=== PATIENT | male | born 1950 | race Two or more races ===

== ENCOUNTER 2018-06-25 14:21 | Emergency (ER) | payer MEDICARE, OTHER ==
[~2018-06-25] VITALS: Ht 160 cm; Wt 72.0 kg
[2018-06-25 14:30] VITALS: BP 153/95
[2018-06-25] MEDS ORDERED: KETOROLAC 30 MG/1 ML IM ONE (15:30)
[2018-06-25] MEDS ORDERED: METHOCARBAMOL 750 MG TABLET PO ONE (15:30)
[2018-06-25] MEDS ORDERED: METHOCARBAMOL 750 MG TABLET ONE (15:32)
[2018-06-25] MEDS ORDERED: KETOROLAC 30 MG/1 ML ONE (15:32)
--- NOTE | 2018-06-25 15:47 | NUR ---
Discharge instructions discussed with patient including when to return to emergency department, patient verbalizes understanding. Prescriptions provided to patient with instruction for use.
--- NOTE | 2018-06-25 15:55 | NUR ---
Patient declines waiting longer for medication hold, ambulates with stiff gait in no acute distress to discharge desk.
== END 2018-06-25 15:56 | disposition home or self-care (01) ==
LOC: ED 15:47
DX: S32.039A Unspecified fracture of third lumbar vertebra, initial encounter for closed fracture (principal); X58.XXXA Exposure to other specified factors, initial encounter; Y93.89 Activity, other specified; Y92.89 Other specified places as the place of occurrence of the external cause; Y99.8 Other external cause status
CPT/HCPCS: 72110; 96372; 99283; J1885; 99284

== ENCOUNTER 2018-07-30 17:27 | Emergency (ER) | payer OTHER ==
[~2018-07-30] VITALS: Ht 152.4 cm; Wt 72.3 kg
[2018-07-30] MEDS ORDERED: KETOROLAC 30 MG/1 ML IM ONE (18:00)
[2018-07-30] MEDS ORDERED: KETOROLAC 30 MG/1 ML ONE (18:11)
[2018-07-30 19:42] VITALS: BP 120/77
== END 2018-07-30 18:00 | disposition home or self-care (01) ==
LOC: ED 17:59
DX: S32.039A Unspecified fracture of third lumbar vertebra, initial encounter for closed fracture (principal); S39.012A Strain of muscle, fascia and tendon of lower back, initial encounter; M51.36 Other intervertebral disc degeneration, lumbar region; X50.9XXA Other and unspecified overexertion or strenuous movements or postures, initial encounter; Y93.89 Activity, other specified; Y92.89 Other specified places as the place of occurrence of the external cause; Y99.8 Other external cause status; Y93.9 Activity, unspecified
CPT/HCPCS: 72110; 96372; 99283; J1885

== ENCOUNTER 2018-08-25 08:39 | Outpatient (CLI) | payer MEDICARE, OTHER ==
[2018-08-25] MEDS ORDERED: HYDR-3240 PO (14:11)
== END 2018-08-25 23:59 | disposition home or self-care (01) ==
LOC: CFH 08:39
PROVIDERS: ATTEND Family Medicine
DX: M46.26 Osteomyelitis of vertebra, lumbar region (principal); M46.46 Discitis, unspecified, lumbar region; M84.48XA Pathological fracture, other site, initial encounter for fracture; G06.2 Extradural and subdural abscess, unspecified; M47.817 Spondylosis without myelopathy or radiculopathy, lumbosacral region; M48.07 Spinal stenosis, lumbosacral region
CPT/HCPCS: 72148

== ENCOUNTER 2018-08-25 11:21 | Inpatient (IN) | payer OTHER ==
[~2018-08-25] VITALS: Ht 160 cm; Wt 67.0 kg
[2018-08-25] MEDS ORDERED: ONDANSETRON 2MG/ML, 2ML ONE (11:56)
[2018-08-25] MEDS ORDERED: MORPHINE SULFATE 4 MG/ML, 1ML ONE (11:57)
[2018-08-25] MEDS ORDERED: SODIUM CHLORIDE FLUSH 10ML SYR IVF ONE (12:00)
[2018-08-25] MEDS ORDERED: ONDANSETRON 2MG/ML, 2ML IVPush ONE (12:00)
[2018-08-25] MEDS ORDERED: MORPHINE SULFATE 4 MG/ML, 1ML IVPush PRN (12:00)
[2018-08-25 12:19] LABS: BASOPHILS # (AUTO) 0.02 x10^3/uL (0-0.1); BASOPHILS % (AUTO) 0 % (0-1); EOSINOPHILS % (AUTO) 0 % (1-7); HCT (SEDRATE) 33.9 % (39.2-51.8); LYMPHOCYTES # (AUTO) 0.31 x10^3/uL (1-3.4); LYMPHOCYTES % (AUTO) 3 % (22-44); MD NO; MEAN CORPUSCULAR HEMOGLOBIN 27.9 pg (27.5-34.5); MEAN CORPUSCULAR HGB CONC 32.8 g/dL (33.2-36.2); MEAN PLATELET VOLUME 7.7 fL (7.4-10.4); MONOCYTES # (AUTO) 0.32 x10^3/uL (0.2-0.8); MONOCYTES % (AUTO) 3 % (2-9); NEUTROPHILS # (AUTO) 8.67 x10^3/uL (1.8-6.8); NEUTROPHILS % (AUTO) 93 % (42-75); PLATELET COUNT 304 x10^3/uL (130-400); RED CELL DISTRIBUTION WIDTH 17.4 % (9.4-14.8)
--- NOTE | 2018-08-25 12:24 | NUR ---
PT REPORTS THAT HE WAS GETTING AN MRI OF HIS BACK AND "THEY SENT ME HERE BECAUSE I HAVE AN INFECTION IN MY SPINE. I ASKED IF I COULD GO TO THE ED LATER AND THEY SAID NO, NO, NO YOU HAVE TO GO RIGHT AWAY. IT'S URGENT". PT REPORTS THAT HIS PAIN GETS UP TO A 9 SOMETIMES, BUT WHEN HE DOESN'T MOVE IT GETS MUCH BETTER.
[2018-08-25 12:29] LABS: INTERNATIONAL NORMALIZED RATIO 1.02 (0.93-1.1); PROTHROMBIN TIME 10.7 Seconds (9.6-11.5)
--- NOTE | 2018-08-25 12:29 | NUR ---
PT REPORTS HE TAKES MEDICATION BUT CANNOT REMEMBER THE NAMES.
[2018-08-25] MEDS ORDERED: SODIUM CHLORIDE FLUSH 10ML SYR IVF PRN (12:30)
[2018-08-25 12:31] LABS: ALANINE AMINOTRANSFERASE 62 U/L (12-78); ALBUMIN 2.9 g/dL (3.4-5.0); ANION GAP 9 mmol/L (5-15); CALCIUM 9.6 mg/dL (8.5-10.1); CHLORIDE 102 mmol/L (98-107); CREATININE 1.45 mg/dL (0.7-1.3)
--- NOTE | 2018-08-25 12:36 | NUR ---
AT BEDSIDE ASSESSING PT. WE DISCUSSED PT MEDS AND I TOLD HER I WOULD WORK ON GETTING THE INFO BECAUSE PT CAN'T REMEMBER WHAT HE TAKES.
[2018-08-25 12:37] LABS: ALKALINE PHOSPHATASE 216 U/L (45-117); TOTAL PROTEIN 7.9 g/dL (6.4-8.2)
--- NOTE | 2018-08-25 12:55 | NUR ---
ATTEMPTED TO CALL REPORT. SPOKE WITH CONRAD, ASKED FOR RENA. CONRAD SAID THAT [facility] WILL CALL ME BACK IN A FEW MINUTES.
[2018-08-25] MEDS ORDERED: ONDANSETRON 2MG/ML, 2ML IVPush PRN (13:00)
[2018-08-25] MEDS ORDERED: ONDANSETRON ODT 4 MG PO PRN (13:00)
[2018-08-25] MEDS ORDERED: LABETALOL 5MG/ML, 20ML IVPush PRN (13:00)
--- NOTE | 2018-08-25 13:00 | NUR ---
SPOKE WITH ASHLEY REGARDING PT PROCEDURE. SHE SAID SHE NEEDED ADDITIONAL INFORMATION BEFORE TAKING THE PT AND SHE WOULD COME BACK FOR PT.
[2018-08-25] MEDS ORDERED: LIDOCAINE-MPF 1%, 5ML ONE (13:05)
--- NOTE | 2018-08-25 13:07 | NUR ---
CALLED [facility] ON , SPOKE WITH BARBARA, ASKED FOR A LIST OF PT MEDS. ON HOLD.
[2018-08-25 13:14] LABS: FREE T4 (FREE THYROXINE) 1.62 ng/dL (0.76-1.46)
--- NOTE | 2018-08-25 13:14 | NUR ---
[facility] AT [facility] REPORTS THAT THE ONLY THING THE PT IS CURRENTLY TAKING IS NORCO.
--- NOTE | 2018-08-25 13:21 | NUR ---
POC DISCUSSED WITH PT AND HE VERBALIZED UNDERSTANDING.
--- NOTE | 2018-08-25 13:24 | NUR ---
SPOKE WITH CALEB IN SECURITY. PT'S [employer] [facility] LICENSE # [id number] IS PARKED IN THE ED PARKING LOT IN A HANDICAP SPOT. PT IS TO BE ADMITTED WITH AN EXPECTED 3 DAY STAY .
--- NOTE | 2018-08-25 13:26 | NUR ---
LATE ENTRY FOR 1310, [employer] # [id number] USED TO EXPLAIN POC, CT PROCEDURE FOR LUMBAR DISC SPACE BIOPSY, PLAN FOR ADMIT AND ANTIBIOTIC TREATMENT. PT VERBALIZED UNDERSTANDING.
--- NOTE | 2018-08-25 13:35 | NUR ---
REPORT GIVEN TO RENA. POC DISCUSSED WITH PT. PT IS AGREEABLE TO PLAN.
--- NOTE | 2018-08-25 13:41 | NUR ---
[facility] IS HERE TO TAKE PT. PT READY TO GO.
[2018-08-25] MEDS ORDERED: FENTANYL PF 100 MCG/2ML ONE (13:52)
[2018-08-25] MEDS ORDERED: MIDAZOLAM 1 MG/ML, 5ML ONE (13:53)
[2018-08-25] MEDS ORDERED: NALOXONE 1 MG/ML, 2ML ONE (13:53)
[2018-08-25] MEDS ORDERED: FLUMAZENIL 0.1 MG/1 ML, 5ML ONE (13:53)
[2018-08-25] MEDS ORDERED: HYDR-3240 PO (14:11)
[2018-08-25 15:03] VITALS: BP 116/80
[2018-08-25] MEDS ORDERED: VANCOMYCIN PER PHARMACY MC PRN (16:30)
[2018-08-25] MEDS ORDERED: PHARMACOKINETIC MONITORING MC PRN (16:30)
[2018-08-25] MEDS ORDERED: VANCOMYCIN 1,300 MG in SODIUM CHLORIDE 0.9% 250 ML IV SCH (17:00)
[2018-08-25] MEDS: CEFTRIAXONE PMX 2GM/50ML 50 ML IV SCH (17:35)
[2018-08-25 18:55] VITALS: BP 133/73
[2018-08-25] MEDS: MORPHINE SULFATE 4 MG/ML, 1ML IVPush PRN (22:53)
[2018-08-26 00:11] VITALS: BP 149/83
[2018-08-26 02:55] LABS: CULTURE INDICATED? YES; MICROSCOPIC AUTO
[2018-08-26] MEDS: CEFTRIAXONE PMX 2GM/50ML 50 ML IV SCH (05:01)
[2018-08-26 06:22] LABS: ALBUMIN 2.4 g/dL (3.4-5.0); ANION GAP 7 mmol/L (5-15); CHLORIDE 104 mmol/L (98-107)
[2018-08-26 06:26] LABS: BASOPHILS # (AUTO) 0.04 x10^3/uL (0-0.1); BASOPHILS % (AUTO) 1 % (0-1); EOSINOPHILS # (AUTO) 0.01 x10^3/uL (0-0.4); EOSINOPHILS % (AUTO) 0 % (1-7); LYMPHOCYTES # (AUTO) 0.82 x10^3/uL (1-3.4); LYMPHOCYTES % (AUTO) 13 % (22-44); MD NO; MEAN CORPUSCULAR HEMOGLOBIN 27.6 pg (27.5-34.5); MEAN CORPUSCULAR HGB CONC 32.7 g/dL (33.2-36.2); MEAN CORPUSCULAR VOLUME 84.4 fL (81-97); MEAN PLATELET VOLUME 7.9 fL (7.4-10.4); MONOCYTES % (AUTO) 11 % (2-9); NEUTROPHILS # (AUTO) 4.62 x10^3/uL (1.8-6.8); NEUTROPHILS % (AUTO) 75 % (42-75); PLATELET COUNT 240 x10^3/uL (130-400); RED BLOOD COUNT 3.35 x10^6/uL (4.38-5.82); RED CELL DISTRIBUTION WIDTH 17.6 % (9.4-14.8)
[2018-08-26 06:36] LABS: ALANINE AMINOTRANSFERASE 50 U/L (12-78); ALKALINE PHOSPHATASE 189 U/L (45-117); BILIRUBIN,TOTAL 0.7 mg/dL (0.2-1.0); CREATININE 1.09 mg/dL (0.7-1.3); THYROID STIMULATING HORMONE 0.644 mIU/L (0.358-3.740); TOTAL PROTEIN 6.8 g/dL (6.4-8.2)
[2018-08-26 06:52] VITALS: BP 126/74
[2018-08-26] MEDS: PANTOPRAZOLE 40 MG IV IVPush SCH (08:27)
[2018-08-26] MEDS: MORPHINE SULFATE 4 MG/ML, 1ML IVPush PRN (09:55)
[2018-08-26 10:01] LABS: AMPHETAMINE SCREEN, URINE Negative (Negative); BARBITURATE SCREEN, URINE Negative (Negative); BENZODIAZEPINE SCREEN, URINE Positive (Negative); CANNABINOID SCREEN, URINE Negative (Negative); COCAINE SCREEN, URINE Negative (Negative); METHADONE SCREEN, URINE Negative (Negative); OPIATE SCREEN, URINE Positive (Negative)
[2018-08-26] MEDS: MEROPENEM 1 GM in SODIUM CHLORIDE 0.9% 100 ML IV SCH ×2 (12:30→20:39)
[2018-08-26 12:40] VITALS: BP 128/77
[2018-08-26 19:14] VITALS: BP 135/75
[2018-08-27 01:56] VITALS: BP 150/77
[2018-08-27] MEDS: MEROPENEM 1 GM in SODIUM CHLORIDE 0.9% 100 ML IV SCH ×3 (04:21→20:13)
[2018-08-27 05:51] LABS: BASOPHILS # (AUTO) 0.04 x10^3/uL (0-0.1); BASOPHILS % (AUTO) 1 % (0-1); EOSINOPHILS # (AUTO) 0.03 x10^3/uL (0-0.4); EOSINOPHILS % (AUTO) 1 % (1-7); LYMPHOCYTES # (AUTO) 0.85 x10^3/uL (1-3.4); LYMPHOCYTES % (AUTO) 17 % (22-44); MD NO; MEAN CORPUSCULAR HEMOGLOBIN 27.1 pg (27.5-34.5); MEAN CORPUSCULAR VOLUME 82.3 fL (81-97); MEAN PLATELET VOLUME 7.2 fL (7.4-10.4); MONOCYTES # (AUTO) 0.65 x10^3/uL (0.2-0.8); MONOCYTES % (AUTO) 13 % (2-9); NEUTROPHILS # (AUTO) 3.46 x10^3/uL (1.8-6.8); NEUTROPHILS % (AUTO) 69 % (42-75); PLATELET COUNT 253 x10^3/uL (130-400); RED BLOOD COUNT 3.28 x10^6/uL (4.38-5.82); RED CELL DISTRIBUTION WIDTH 17.4 % (9.4-14.8)
[2018-08-27 06:07] LABS: ALBUMIN 2.2 g/dL (3.4-5.0); ANION GAP 6 mmol/L (5-15); CALCIUM 9.1 mg/dL (8.5-10.1); CHLORIDE 105 mmol/L (98-107)
[2018-08-27 06:12] LABS: ALANINE AMINOTRANSFERASE 60 U/L (12-78); ALKALINE PHOSPHATASE 186 U/L (45-117); BILIRUBIN,TOTAL 0.6 mg/dL (0.2-1.0); CREATININE 1.06 mg/dL (0.7-1.3); TOTAL PROTEIN 6.8 g/dL (6.4-8.2)
[2018-08-27 07:26] VITALS: BP 153/83
[2018-08-27] MEDS: PANTOPRAZOLE 40 MG IV IVPush SCH (08:22)
[2018-08-27] MEDS ORDERED: HYDROcodone/APAP 5/325 TABLET ONE (12:52)
[2018-08-27] MEDS: HYDROcodone/APAP 5/325 TABLET PO PRN ×2 (12:55→20:13)
[2018-08-27 14:45] VITALS: BP 137/80
[2018-08-27 18:46] VITALS: BP 120/70
[2018-08-28 00:16] VITALS: BP 143/91
[2018-08-28] MEDS: MEROPENEM 1 GM in SODIUM CHLORIDE 0.9% 100 ML IV SCH (04:28)
[2018-08-28 05:54] LABS: ALBUMIN 2.2 g/dL (3.4-5.0); ANION GAP 5 mmol/L (5-15); CALCIUM 9.1 mg/dL (8.5-10.1); CHLORIDE 106 mmol/L (98-107)
[2018-08-28 05:58] LABS: ALANINE AMINOTRANSFERASE 84 U/L (12-78); ALKALINE PHOSPHATASE 226 U/L (45-117); BILIRUBIN,TOTAL 0.6 mg/dL (0.2-1.0); CREATININE 0.96 mg/dL (0.7-1.3); TOTAL PROTEIN 6.7 g/dL (6.4-8.2)
[2018-08-28 06:00] LABS: BASOPHILS # (AUTO) 0.05 x10^3/uL (0-0.1); BASOPHILS % (AUTO) 1 % (0-1); EOSINOPHILS # (AUTO) 0.06 x10^3/uL (0-0.4); EOSINOPHILS % (AUTO) 1 % (1-7); LYMPHOCYTES # (AUTO) 0.93 x10^3/uL (1-3.4); LYMPHOCYTES % (AUTO) 14 % (22-44); MD NO; MEAN CORPUSCULAR HGB CONC 32.3 g/dL (33.2-36.2); MEAN CORPUSCULAR VOLUME 83.6 fL (81-97); MEAN PLATELET VOLUME 7.5 fL (7.4-10.4); MONOCYTES % (AUTO) 9 % (2-9); NEUTROPHILS # (AUTO) 5.14 x10^3/uL (1.8-6.8); NEUTROPHILS % (AUTO) 76 % (42-75); PLATELET COUNT 240 x10^3/uL (130-400); RED BLOOD COUNT 3.43 x10^6/uL (4.38-5.82)
[2018-08-28 08:13] VITALS: BP 164/95
[2018-08-28] MEDS: PANTOPRAZOLE 40 MG IV IVPush SCH (09:30)
[2018-08-28] MEDS: HYDROcodone/APAP 5/325 TABLET PO PRN ×2 (09:30→19:49)
[2018-08-28] MEDS ORDERED: POLYETHYLENE GLYCOL 17 GM PACKET PO PRN (09:30)
[2018-08-28] MEDS ORDERED: BISACODYL 10 MG SUPP PR PRN (09:30)
[2018-08-28] MEDS ORDERED: MAGNESIUM HYDROXIDE 8%, 30ML UDC PO PRN (09:30)
[2018-08-28] MEDS: DOCUSATE 100 MG CAPSULE PO SCH ×2 (09:46→19:49)
[2018-08-28] MEDS: ERTAPENEM 1 GM in SODIUM CHLORIDE 0.9% 50 ML IV SCH (12:29)
[2018-08-28 13:55] VITALS: BP 133/72
[2018-08-28 18:51] VITALS: BP 146/81
[2018-08-29 00:45] VITALS: BP 143/76
[2018-08-29] MEDS: HYDROcodone/APAP 5/325 TABLET PO PRN ×2 (08:24→21:49)
[2018-08-29] MEDS: PANTOPROZOLE 40MG TABLET PO SCH (08:24)
[2018-08-29] MEDS: DOCUSATE 100 MG CAPSULE PO SCH ×2 (08:24→21:42)
[2018-08-29 09:49] VITALS: BP 150/83
[2018-08-29] MEDS: ERTAPENEM 1 GM in SODIUM CHLORIDE 0.9% 50 ML IV SCH (11:48)
[2018-08-29 13:09] VITALS: BP 136/74
[2018-08-29 19:20] VITALS: BP 159/88
[2018-08-30 02:38] VITALS: BP 133/76
[2018-08-30 06:34] VITALS: BP 129/80
[2018-08-30] MEDS: PANTOPROZOLE 40MG TABLET PO SCH (09:03)
[2018-08-30] MEDS: DOCUSATE 100 MG CAPSULE PO SCH ×2 (09:03→20:13)
[2018-08-30] MEDS: ERTAPENEM 1 GM in SODIUM CHLORIDE 0.9% 50 ML IV SCH (11:47)
[2018-08-30 14:49] VITALS: BP 127/66
[2018-08-30 15:26] LABS: CLOSTRIDIUM DIFFICILE ANTIGEN POSITIVE; CLOSTRIDIUM DIFFICILE TOXIN POSITIVE (Negative)
[2018-08-30] MEDS: VANCOMYCIN 50 MG/ML ORAL SUSP PO SCH (20:13)
[2018-08-30 20:42] VITALS: BP 123/66
[2018-08-31] MEDS: VANCOMYCIN 50 MG/ML ORAL SUSP PO SCH ×3 (02:38→14:39)
[2018-08-31 03:19] VITALS: BP 144/70
[2018-08-31 05:30] LABS: BASOPHILS # (AUTO) 0.05 x10^3/uL (0-0.1); BASOPHILS % (AUTO) 1 % (0-1); EOSINOPHILS # (AUTO) 0.25 x10^3/uL (0-0.4); EOSINOPHILS % (AUTO) 3 % (1-7); LYMPHOCYTES # (AUTO) 1.39 x10^3/uL (1-3.4); LYMPHOCYTES % (AUTO) 14 % (22-44); MD NO; MEAN CORPUSCULAR HEMOGLOBIN 27.3 pg (27.5-34.5); MEAN CORPUSCULAR HGB CONC 32.5 g/dL (33.2-36.2); MEAN CORPUSCULAR VOLUME 83.9 fL (81-97); MEAN PLATELET VOLUME 7.8 fL (7.4-10.4); MONOCYTES # (AUTO) 0.73 x10^3/uL (0.2-0.8); MONOCYTES % (AUTO) 7 % (2-9); NEUTROPHILS # (AUTO) 7.88 x10^3/uL (1.8-6.8); NEUTROPHILS % (AUTO) 77 % (42-75); PLATELET COUNT 293 x10^3/uL (130-400); RED BLOOD COUNT 3.52 x10^6/uL (4.38-5.82); RED CELL DISTRIBUTION WIDTH 17.5 % (9.4-14.8)
[2018-08-31 05:31] LABS: HCT (SEDRATE) 29.8 % (39.2-51.8)
[2018-08-31 05:38] LABS: ALANINE AMINOTRANSFERASE 50 U/L (12-78); ALBUMIN 2.3 g/dL (3.4-5.0); ANION GAP 7 mmol/L (5-15); CALCIUM 9.1 mg/dL (8.5-10.1); CHLORIDE 105 mmol/L (98-107); CREATININE 0.94 mg/dL (0.7-1.3)
[2018-08-31 05:47] LABS: ALKALINE PHOSPHATASE 200 U/L (45-117); BILIRUBIN,TOTAL 0.6 mg/dL (0.2-1.0)
[2018-08-31] MEDS: HYDROcodone/APAP 5/325 TABLET PO PRN (06:14)
[2018-08-31 06:59] VITALS: BP 127/76
[2018-08-31] MEDS: PANTOPROZOLE 40MG TABLET PO SCH (08:05)
[2018-08-31] MEDS: DOCUSATE 100 MG CAPSULE PO SCH (08:10)
[2018-08-31] MEDS ORDERED: ENOXAPARIN 40 MG/0.4 ML SQ SCH (09:30)
[2018-08-31] MEDS: ERTAPENEM 1 GM in SODIUM CHLORIDE 0.9% 50 ML IV SCH (11:06)
[2018-08-31 12:57] VITALS: BP 129/67
[2018-08-31] MEDS ORDERED: ERTA1VIA IV (13:46)
[2018-08-31] MEDS ORDERED: HYDR-3237 PO (13:46)
[2018-08-31] MEDS ORDERED: PANT40TA5 PO (13:46)
[2018-08-31] MEDS ORDERED: VANC1VIA3 PO (13:46)
[2018-08-31 16:39] VITALS: BP 138/74
== END 2018-08-31 16:53 | DRG 871 ==
LOC: ED 12:09 → EDIP 12:10 → ED 12:19 → 4NOR 14:48
PROVIDERS: ADMIT Hospitalist; ATTEND Hospitalist
PROC: 0S923ZX Drainage of Lumbar Vertebral Disc, Percutaneous Approach, Diagnostic (ICD-10-PCS; 2018-08-25)
PROC: 02HV33Z Insertion of Infusion Device into Superior Vena Cava, Percutaneous Approach (ICD-10-PCS; principal; 2018-08-31)
PROC: B5181ZA Fluoroscopy of Superior Vena Cava using Low Osmolar Contrast, Guidance (ICD-10-PCS; 2018-08-31)
PROC: B548ZZA Ultrasonography of Superior Vena Cava, Guidance (ICD-10-PCS; 2018-08-31)
DX: A41.51 Sepsis due to Escherichia coli [E. coli] (principal); G06.1 Intraspinal abscess and granuloma; A04.72 Enterocolitis due to Clostridium difficile, not specified as recurrent; M48.56XA Collapsed vertebra, not elsewhere classified, lumbar region, initial encounter for fracture; M46.26 Osteomyelitis of vertebra, lumbar region; D64.9 Anemia, unspecified; G89.29 Other chronic pain; I71.4 Abdominal aortic aneurysm, without rupture; I72.2 Aneurysm of renal artery; K05.6 Periodontal disease, unspecified; K59.00 Constipation, unspecified; Z16.12 Extended spectrum beta lactamase (ESBL) resistance; M46.46 Discitis, unspecified, lumbar region; M48.061 Spinal stenosis, lumbar region without neurogenic claudication; M60.9 Myositis, unspecified; Z80.9 Family history of malignant neoplasm, unspecified; Z86.73 Personal history of transient ischemic attack (TIA), and cerebral infarction without residual deficits; Z87.891 Personal history of nicotine dependence
CPT/HCPCS: 36415; 36573; 62267; 70100; 71045; 72131; 75989; 80053; 80307; 81001; 83605; 83735; 84100; 84439; 84443; 85025; 85610; 85651; 85730; 86140; 87015; 87040; 87070; 87075; 87077; 87086; 87102; 87116; 87186; 87205; 87206; 87324; 93005; 93306; 96374; 96375; 99156; 99157; G0378; J0696; J1335; J1650; J2185; J2250; J2405; J3010; J3370; C1751; C9113; J2270; J2310; J7050